=== PATIENT | female | born 1945 | race Caucasian/White ===

== ENCOUNTER 2017-11-03 09:39 | Emergency (ER) | payer MEDICARE, OTHER ==
--- NOTE | 2017-11-03 10:02 | UC ---
Abdominal Pain Female HPI - HPI Summary HPI Summary: 72 yo female presents with umbilical and lower abdominal pain with diarrhea for the last 2 days. She tells me that 2 days ago she began to have loose stools which turned watery. Yesterday went 6-7 times a day. She does have a history of diverticulosis, but says she has never had diverticulitis. Feels nauseous, but no vomiting. Denies fever, chills, SOB, chest pain, dysuria, hematuria, flank pain, vaginal pain/bleeding/discharge. - History of Current Complaint Stated Complaint: ABD PAIN, ACHEY Time Seen by Provider: 11/03/17 10:02 Hx Obtained From: Patient Onset/Duration: Sudden Onset Timing: Constant Severity Initially: Moderate Severity Currently: Moderate Pain Intensity: 6 Pain Scale Used: 0-10 Numeric Allergies/Adverse Reactions: Allergies Allergy/AdvReac Type Severity Reaction Status Date / Time No Known Allergies Allergy Verified 11/03/17 10:26 Home Medications: Home Medications Lisinopril TAB* [Prinivil TAB*] 10 mg PO DAILY 11/03/17 [History Confirmed 11/03] Meloxicam, Submicronized [Vivlodex] 10 mg PO DAILY 11/03/17 [History Confirmed 11/03/17] Rosuvastatin Calcium [Crestor] 5 mg PO BEDTIME 11/03/17 [History Confirmed 11/03] amLODIPine TAB* [Norvasc 5 mg TAB*] 5 mg PO DAILY 11/03/17 [History Confirmed ] PMH/Surg Hx/FS Hx/Imm Hx Endocrine History: Dyslipidemia Cardiovascular History: Hypertension - Family History Known Family History: Positive: Hypertension - Social History Occupation: Retired Lives: With Family Alcohol Use: Occasionally Substance Use Type: None Smoking Status (MU): Never Smoked Tobacco Review of Systems Constitutional: Negative Skin: Negative Respiratory: Negative Cardiovascular: Negative Gastrointestinal: Abdominal Pain, Diarrhea Genitourinary: Negative Neurovascular: Negative Neurological: Negative Psychological: Negative All Other Systems Reviewed And Are Negative: Yes Physical Exam - Summary Physical Exam Summary: GENERAL: NAD. WDWN. No pain distress. SKIN: No rashes, sores, lesions, or open wounds. NECK: Supple. Nontender. No lymphadenopathy. CHEST: CTAB. No r/r/w. No accessory muscle use. Breathing comfortably and in no distress. CV: RRR. Without m/r/g. Pulses intact. Brisk cap refill. ABDOMEN: Mild TTP about the umbilicus and lower abdomen. Soft. No distention or guarding. No organomegaly. No CVA tenderness. Bowel sounds present NEURO: Alert. CN II-XII grossly intact. PSYCH: Age appropriate behavior. Laboratory Tests 11/03/17 10:36 POC Urine Color [place] POC Urine Clarity Clear POC Urine pH 5.5 POC Ur Specif [place] 1.025 POC Urine Protein 2+ A POC Ur Glucose (UA) Negative POC Urine Ketones 1+ A POC Urine Blood Trace-intact A POC Urine Nitrite Negative POC Urine Bilirubin 2+ A POC Urine Urobilinogen 0.2 POC U Leukocyte Esteras Negative Triage Information Reviewed: Yes Vital Signs: Vital Signs: Temp Pulse Resp BP Pulse Ox 99.8 F 71 14 114/53 95 11/03/17 10:19 11/03/17 10:19 11/03/17 10:19 11/03/17 10:19 11/03/17 10:19 Abd Pain Female Course/Dx - Course Course Of Treatment: UA negative for infection. I suspect she may have diverticulitis. Unfortunately, she has never had this in the past and I have no CT available at urgent care during this visit - therefore I have advised her to go to the ED for further evaluation of her abdominal pain. Pt was agreeable to this. - Differential Dx/Diagnosis Provider Diagnoses: Abdominal pain. Diarrhea Discharge - Sign-Out/Discharge Documenting (check all that apply): Discharge/Admit/Transfer - Discharge Plan Condition: Stable Disposition: HOME Referrals: No Primary Care Phys,NOPCP [Primary Care Provider] - Additional Instructions: Unfortunately, we do not have any advanced imaging available at Urgent Care - please go to the ER for further evaluation of your abdominal pain - Billing Disposition and Condition Condition: STABLE Disposition: Home
[2017-11-03 10:27] VITALS: BP 114/53
== END 2017-11-03 10:49 | disposition home or self-care (01) ==
LOC: UCEAST 09:39
DX: R10.33 Periumbilical pain (principal); R19.7 Diarrhea, unspecified; E78.5 Hyperlipidemia, unspecified; I10 Essential (primary) hypertension; Z82.49 Family history of ischemic heart disease and other diseases of the circulatory system
CPT/HCPCS: 81003; 99202; G0463

== ENCOUNTER 2017-11-03 11:46 | Emergency (ER) | payer MEDICARE, OTHER ==
[2017-11-03 13:13] LABS: ABS Basophils 0 10^3/ul (0-0.2); ABS Eosinophils 0 10^3/ul (0-0.6); ABS Lymphocytes 0.7 10^3/ul (1.0-4.8); ABS Monocytes 0.4 10^3/ul (0-0.8); ABS Neutrophils 3.3 10^3/ul (1.5-7.7); ABS Nucleated RBC 0 10^3/ul; Eosinophil % 0 % (0-6); Hematocrit 43 % (35-47); Hemoglobin 14.5 g/dl (12.0-16.0); Lymphocyte % 15.4 % (25-47); Mean Corpuscular HGB Conc 34 g/dl (31-36); Mean Corpuscular Hemoglobin 32 pg (27-31); Mean Corpuscular Volume 93 fL (80-97); Mean Platelet Volume 8.6 um3 (7.4-10.4); Nucleated Red Blood Cells % 0.1; Platelet Count 206 10^3/ul (150-450); Red Blood Count 4.58 10^6/ul (4.00-5.40); Red Cell Distribution Width 13 % (10.5-15); White Blood Count 4.4 10^3/ul (3.5-10.8)
[2017-11-03 13:29] LABS: EGFR Non-African American 44.3 (>60)
[2017-11-03] MEDS ORDERED: Iodixanol* (CONTRAST) 320 MG/ML 100 ML SDV IV ONE (15:01)
--- NOTE | 2017-11-03 16:20 | RAD ---
CLINICAL HISTORY: LLQ pain, hx of diverticulitis COMPARISON: None TECHNIQUE: Multiple contiguous axial CT scans were obtained of the abdomen and pelvis after the administration of intravenous contrast. Coronal and sagittal multiplanar reformations are submitted for review. Oral contrast was not administered. Delayed images were obtained through the abdomen. FINDINGS: LUNG BASES: The lung bases are clear. LIVER: The liver is normal in shape, size, contour, and attenuation. BILE DUCTS: There is no intrahepatic or extrahepatic biliary dilatation. GALLBLADDER: The gallbladder is not visualized. Surgical clips are noted in the gallbladder fossa. PANCREAS: The pancreas is normal, without mass or ductal dilatation. SPLEEN: Normal in size and appearance. UPPER GI TRACT: Evaluation of the gastrointestinal tract is limited by incomplete gastric distention. The upper GI tract is unremarkable. SMALL BOWEL AND MESENTERY: The small bowel is normal in contour, course, and caliber. There is no obstruction or dilatation. COLON: There are scattered diverticula of the distal colon. There is no pericolonic inflammatory change. There is a tubular, vermiform, hollow viscus that is blind ending, and originates from the cecum, consistent with a normal appendix. There is no periappendiceal inflammatory change. This is best seen on axial images 53 through 59 ADRENALS: Normal bilaterally. KIDNEYS: The kidneys are normal in shape, size, contour, and axis. There is no hydronephrosis or nephrolithiasis. BLADDER: The bladder is smooth in contour. PELVIC ORGANS: The pelvic organs are not visualized. AORTA: The aorta is normal. IVC: Unremarkable LYMPH NODES: There is no lymphadenopathy by size criteria. ABDOMINAL WALL: There is no evidence for abdominal wall hernia. BONES AND SOFT TISSUES: There are mild diffuse degenerative changes. OTHER: None IMPRESSION: DIVERTICULOSIS.
[2017-11-03 17:16] VITALS: BP 130/66
--- NOTE | 2017-11-03 18:23 | ED ---
Rui Cano Jade, scribed for Jacek Cheung MD on 11/03/17 at 1510 . Abdominal Pain/Female - HPI Summary HPI Summary: Pt is a 72 y/o [place] [facility] [place]o [place] pain. She states she s had lower abdominal pain and diarrhea for 3 days. She denies any fever or hematochezia. PMHx diverticulitis 2 years ago. Pt denies any recent exposure to diarrheal illness, recent antibiotics, lactose intolerance, smoking, or recent travel. No FHx bowel disease. - History of Current Complaint Chief Complaint: EDAbdPain Stated Complaint: ABD PAIN/DIARHEA Time Seen by Provider: 11/03/17 14:47 Hx Obtained From: Patient Onset/Duration: Gradual Onset, Lasting Days - 3, Still Present Severity Currently: Moderate Pain Intensity: 5 Pain Scale Used: 0-10 Numeric Location: Diffuse Aggravating Factor(s): Nothing Alleviating Factor(s): Nothing Associated Signs and Symptoms: Positive: Diarrhea Allergies/Adverse Reactions: Allergies Allergy/AdvReac Type Severity Reaction Status Date / Time No Known Allergies Allergy Verified 11/03/17 10:26 Home Medications: Home Medications Alendronate (NF) [Fosamax (NF)] 70 mg PO WEEKLY 11/03/17 [History Confirmed ] Lisinopril TAB* [Prinivil TAB 10 MG*] 20 mg PO DAILY 11/03/17 [History Confirmed 11/03/17] Meloxicam(NF) [Mobic(NF)] 15 mg PO QAM 11/03/17 [History Confirmed 11/03/17] tiZANidine TAB* [Zanaflex TAB*] 4 mg PO BEDTIME 11/03/17 [History Confirmed ] PMH/Surg Hx/FS Hx/Imm Hx Cardiovascular History: Reports: Hx Hypertension GI History: Reports: Hx Diverticulosis - Diverticulitis - Surgical History Surgery Procedure, Year, and Place: Hysterectomy. Gall Bladder. Right wrist surgery Infectious Disease History: No Infectious Disease History: Denies: Traveled Outside the [place] in Last 30 Days - Family History Known Family History: Positive: Hypertension, Other - NEGATIVE: bowel disease - Social History Alcohol Use: Occasionally Substance Use Type: Reports: None Smoking Status (MU): Never Smoked Tobacco Review of Systems Negative: Fever Positive: Abdominal Pain, Diarrhea, Other - NEGATIVE: hematochezia All Other Systems Reviewed And Are Negative: Yes Physical Exam - Summary Physical Exam Summary: Appearance: Well appearing, no pain distress Skin: warm, dry, reflects adequate perfusion Head/face: normal Eyes: EOMI, SARA ENT: normal Neck: supple, non-tender Respiratory: CTA, breath sounds present Cardiovascular: RRR, pulses symmetrical Abdomen: soft. Mild LLQ discomfort. Bowel Sounds: increased Musculoskeletal: normal, strength/ROM intact Neuro: normal, sensory motor intact, A&Ox3 Triage Information Reviewed: Yes Vital Signs On Initial Exam: Initial Vitals Temp Pulse Resp BP Pulse Ox 98.1 F 62 16 130/64 98 11/03/17 12:14 11/03/17 12:14 11/03/17 12:14 11/03/17 12:14 11/03/17 12:14 Vital Signs Reviewed: Yes Diagnostics - Vital Signs Vital Signs Temp Pulse Resp BP Pulse Ox 11/03/17 13:08 98.8 F 64 16 109/69 100 11/03/17 12:14 98.1 F 62 16 130/64 98 - Laboratory Lab Results: Lab Results 11/03/17 11/03/17 Range/Units 12:44 12:44 WBC 4.4 (3.5-10.8) 10^3/ul RBC 4.58 (4.00-5.40) 10^6/ul Hgb 14.5 (12.0-16.0) g/dl Hct 43 (35-47) % MCV 93 (80-97) fL MCH 32 H (27-31) pg MCHC 34 (31-36) g/dl RDW 13 (10.5-15) % Plt Count 206 (150-450) 10^3/ul MPV 8.6 (7.4-10.4) um3 Neut % (Auto) 74.5 (38-83) % Lymph % (Auto) 15.4 L (25-47) % [place] % (Auto) 9.9 H (0-7) % Eos % (Auto) 0 (0-6) % Baso % (Auto) 0.2 (0-2) % Absolute Neuts (auto) 3.3 (1.5-7.7) 10^3/ul Absolute Lymphs (auto) 0.7 L (1.0-4.8) 10^3/ul Absolute Monos (auto) 0.4 (0-0.8) 10^3/ul Absolute Eos (auto) 0 (0-0.6) 10^3/ul Absolute Basos (auto) 0 (0-0.2) 10^3/ul Absolute Nucleated RBC 0 10^3/ul Nucleated RBC % 0.1 Sodium 137 (135-145) mmol/L Potassium 3.8 (3.5-5.0) mmol/L Chloride 100 L (101-111) mmol/L Carbon Dioxide 29 (22-32) mmol/L Anion Gap 8 (2-11) mmol/L BUN 23 (6-24) mg/dL Creatinine 1.20 H (0.51-0.95) mg/dL Est GFR ( Amer) 57.0 (>60) Est GFR (Non-Af Amer) 44.3 (>60) BUN/Creatinine Ratio 19.2 (8-20) Glucose 98 (70-100) mg/dL Calcium 9.4 (8.6-10.3) mg/dL Total Bilirubin 0.50 (0.2-1.0) mg/dL AST 30 (13-39) U/L ALT 21 (7-52) U/L Alkaline Phosphatase 43 (34-104) U/L Total Protein 7.1 (6.4-8.9) g/dL Albumin 4.1 (3.2-5.2) g/dL Globulin 3.0 (2-4) g/dL Albumin/Globulin Ratio 1.4 (1-3) Lipase 47 (11.0-82.0) U/L Result Diagrams: 11/03/17 12:44 11/03/17 12:44 Lab Statement: Any lab studies that have been ordered have been reviewed, and results considered in the medical decision making process. - CT 12:32 CT Interpretation: Positive (See Comments) - Abd/Pel CT: DIVERTICULOSIS. ED physician reviewed radiology report. CT Interpretation Completed By: Radiologist Abdominal Pain Fem Course/Dx - Course Course Of Treatment: Mild left lower quadrant pain with history of diverticulitis. Also diarrhea. No recent antibiotics. No contacts with C. difficile. Laboratories are benign and the patient's pain is mild. She does not require anything for discomfort. She was unable to produce a stool specimen for culture. CT has shown no inflammatory changes, especially in the area of discomfort. Discharged to follow up with primary care physician. Treat symptomatically. - Diagnoses Differential Diagnosis: Positive: Other - Diverticulitis, colitis, diarrheal illness, gastroenteritis, ovarian cyst, UTI Provider Diagnoses: Left sided abdominal pain, Diarrhea Discharge - Sign-Out/Discharge Documenting (check all that apply): Discharge/Admit/Transfer - Discharge - Discharge Plan Condition: Good Disposition: HOME Prescriptions: Hyoscyamine Sulfate [Levsin/Sl] 0.125 mg SL Q6H PRN #20 sub PRN Reason: abdominal cramping Lactobacillus Acidophilus* 1 cap PO BID #20 cap Loperamide CAP* [Imodium CAP*] 2 mg PO Q4H PRN #20 cap PRN Reason: Diarrhea Patient Education Materials: Acute Diarrhea (ED), Abdominal Pain (ED) Referrals: [facility] [Outside] [facility] [Outside] Additional Instructions: Return with fever, increased pain, vomiting, weakness, worse or other concerns. Drink plenty of fluids, diet as tolerated. - Billing Disposition and Condition Condition: STABLE Disposition: Home The documentation as recorded by the Rui kellogg Jade accurately reflects the service I personally performed and the decisions made by , Jacek Cheung MD.
== END 2017-11-03 17:14 | disposition home or self-care (01) ==
LOC: ED 11:46
DX: R19.7 Diarrhea, unspecified (principal); R10.9 Unspecified abdominal pain; I10 Essential (primary) hypertension; R10.33 Periumbilical pain; E78.5 Hyperlipidemia, unspecified; Z82.49 Family history of ischemic heart disease and other diseases of the circulatory system
CPT/HCPCS: 36415; 74177; 80053; 83690; 85025; 99282; Q9967

== ENCOUNTER 2023-09-03 16:28 | Inpatient (IN) ==
[2023-09-03 17:31] LABS: ABS Eosinophils 0.1 10^3/uL (0.0-0.5); ABS Lymphocytes 1.4 10^3/uL (1.0-4.8); ABS Monocytes 0.7 10^3/uL (0.0-0.9); ABS Neutrophils 5.5 10^3/uL (1.5-7.6); Eosinophil % 1.4 %; Hematocrit 39.9 % (35-45); Hemoglobin 13.3 g/dL (11.5-14.3); Lymphocyte % 18.3 %; Mean Corpuscular Hemoglobin 31.1 pg (27-33); Mean Corpuscular Hgb Conc 33.4 g/dL (31-36); Mean Corpuscular Volume 93.1 fL (80-97); Mean Platelet Volume 7.8 fL (7.5-11.2); Nucleated Red Blood Cells % 0.1 %/100WBC (0.0-0.8); Platelet Count 296 10^3/uL (150-450); Red Blood Count 4.28 10^6/uL (3.63-4.92); Red Cell Distribution Width 13.7 % (12-17); White Blood Count 7.7 10^3/uL (3.8-11.8)
[2023-09-03] MEDS: Morphine 4 MG/ML VIAL (1 ml) IV ONE ×2 (17:35→20:11)
[2023-09-03] MEDS: Ondansetron 4 mg VIAL 2 MG/ML 2 ml VIAL IV ONE (17:35)
[2023-09-03 17:48] LABS: INR 1.05 (0.83-1.13)
[2023-09-03 18:11] LABS: Albumin 4.5 g/dL (3.2-5.2); Albumin/Globulin Ratio 1.9 (1-3); Calcium 10.5 mg/dL (8.6-10.3); Creatinine, Serum 1.45 mg/dL (0.51-0.95); Globulin 2.4 g/dL (2-4); Potassium 3.7 mmol/L (3.5-5.0); Total Bilirubin 0.5 mg/dL (0.2-1.0); Total Protein 6.9 g/dL (6.4-8.9); eGFR CKD-EPI 37.4 (>60)
[2023-09-03] MEDS: Lidocaine PATCH 5% PATCH TRANSDERM ONE (19:13)
[2023-09-03 19:46] LABS: High Sensitivity Troponin 1 Hr 7 pg/mL (<15)
[2023-09-03] MEDS: Albuterol 2.5mg/3 ml (0.083%) NEB.SOLN INH ONE (20:53)
[2023-09-03] MEDS: Iodixanol (CONTRAST) 320 MG/ML 100 ML SDV IV ONE (21:02)
[2023-09-03] MEDS: Lactated Ringers 1000 ml BAG 1,000 ML IV ONE (23:32)
[2023-09-04] MEDS ORDERED: Polyethylene Glycol 3350 17 GM PACKET PO PRN (00:18)
[2023-09-04 00:41] LABS: Hematocrit 33.8 % (35-45); Hemoglobin 11.2 g/dL (11.5-14.3)
[2023-09-04] MEDS: Senna/Docusate 8.6/50 mg (NF) TAB PO SCH (00:47)
[2023-09-04 01:04] LABS: Hematocrit 34.6 % (35-45); Hemoglobin 11.5 g/dL (11.5-14.3)
[2023-09-04] MEDS: Lactated Ringers 1000 ml BAG 1,000 ML IV SCH (02:45)
[2023-09-04] MEDS: Senna TAB 8.6 mg TAB PO SCH (02:48)
[2023-09-04] MEDS: Docusate LIQ 100 MG/10 ML UDC PO SCH (02:48)
[2023-09-04] MEDS: Acetaminophen IV 1 GM/100ML 1,000 MG/100 ML BAG IV PRN (06:13)
[2023-09-04] MEDS: Enoxaparin 30 MG/0.3 ML SYR SUBCUT SCH (06:28)
[2023-09-04 06:48] LABS: ABS Eosinophils 0.1 10^3/uL (0.0-0.5); ABS Lymphocytes 1.2 10^3/uL (1.0-4.8); ABS Monocytes 0.7 10^3/uL (0.0-0.9); ABS Neutrophils 5.6 10^3/uL (1.5-7.6); ABS Nucleated RBC 0.01 10^3/ul; Eosinophil % 1.7 %; Hematocrit 37.5 % (35-45); Hemoglobin 12.3 g/dL (11.5-14.3); Mean Corpuscular Hemoglobin 30.9 pg (27-33); Mean Corpuscular Hgb Conc 32.9 g/dL (31-36); Mean Corpuscular Volume 94.1 fL (80-97); Nucleated Red Blood Cells % 0.1 %/100WBC (0.0-0.8); Platelet Count 252 10^3/uL (150-450); Red Blood Count 3.99 10^6/uL (3.63-4.92); Red Cell Distribution Width 13.6 % (12-17); White Blood Count 7.7 10^3/uL (3.8-11.8)
[2023-09-04 06:59] LABS: Calcium 9.3 mg/dL (8.6-10.3); Creatinine, Serum 1.08 mg/dL (0.51-0.95); Potassium 4.2 mmol/L (3.5-5.0); eGFR CKD-EPI 53.2 (>60)
[2023-09-04] MEDS: DULoxetine DR 60 mg CAP PO SCH (09:38)
[2023-09-04] MEDS: Polyethylene Glycol 3350 17 GM PACKET PO SCH (09:45)
[2023-09-04] MEDS: NF: Trospium 20 mg TAB (NF) PO SCH (10:23)
[2023-09-04] MEDS: Morphine 2 MG/ML SYRINGE IV ONE (16:22)
[2023-09-04 18:31] LABS: High Sensitivity Troponin 1 Hr 8 pg/mL (<15)
[2023-09-04] MEDS ORDERED: Senna/Docusate 8.6/50 mg (NF) TAB PO SCH (21:00)
[2023-09-05] MEDS: Enoxaparin 40 MG/0.4 ML SYR SUBCUT SCH (05:45)
[2023-09-05 07:48] LABS: ABS Eosinophils 0.2 10^3/uL (0.0-0.5); ABS Lymphocytes 1.2 10^3/uL (1.0-4.8); ABS Monocytes 0.6 10^3/uL (0.0-0.9); ABS Neutrophils 5.2 10^3/uL (1.5-7.6); Eosinophil % 2.3 %; Hematocrit 35.8 % (35-45); Hemoglobin 11.8 g/dL (11.5-14.3); Lymphocyte % 16.7 %; Mean Corpuscular Hemoglobin 30.8 pg (27-33); Mean Corpuscular Volume 93.3 fL (80-97); Mean Platelet Volume 8.5 fL (7.5-11.2); Platelet Count 279 10^3/uL (150-450); Red Blood Count 3.84 10^6/uL (3.63-4.92); Red Cell Distribution Width 13.5 % (12-17); White Blood Count 7.2 10^3/uL (3.8-11.8)
[2023-09-05 08:24] LABS: Calcium 9.3 mg/dL (8.6-10.3); Creatinine, Serum 0.64 mg/dL (0.51-0.95); Potassium 3.6 mmol/L (3.5-5.0); eGFR CKD-EPI 91.5 (>60)
[2023-09-05 13:29] VITALS: BP 144/85
== END 2023-09-05 16:50 | disposition home or self-care (01) | DRG 135 ==
LOC: EDHOLD 16:28 → ED 16:28 → SUATTDRO 23:25 → MED 09-04 08:05
PROVIDERS: ADMIT Hospitalist; ATTEND Student in an Organized Health Care Education/Training Program